=== PATIENT | female | born 1965 | race African-American/Black ===

== ENCOUNTER → 2017-02-27 | Outpatient (RCR) ==
[2014-11-17 10:42] VITALS: BMI 53.8
--- NOTE | 2017-02-17 12:05 | RS.OTEVAL ---
Subjective Date of Note: 02/17/17 Visit #: 1 Date of Evaluation: 02/17/17 Payer Source: Medicaid Date of Onset/Injury/Change in Status: 01/16/17 Surgery Performed?: No Treatment Diagnosis: RUE bursitis, impingement, tendonitis Treatment Side (optional): Right Prior Level of Function.....Patient was independent with: ADL's, Self Care, Work /Vocation, Caregiving, Ambulation/Mobility, Community Integration/Access History of Condition/Mechanism of Injury: Pain in RUE shoulder 2 years ago after carrying the laundry basket and twisting. Pt then hurt her RUE shoulder last month working in her yard. Level of Function: Pt has difficulty with her ADLS. Functional Limitations: Sleep, Self Care, ADL's, Reaching, Pushing, Pulling, Lifting, Carrying, Sitting Current Complaints/Gains: Pain with AROM of RUE when trying to reach, or carry items. Pt is not able to take care of her mom. Medical History Medical History: Hypertension, Diabetes, Arthritis Diagnostic Testing/Imaging:: MRI Hx Home Medications: Metformin, ibuprofin, lesartin, Verapamil, Humila N3S Atavastatin Patient's Goals: To be able to be pain free and use her Right arm. Pain Assessment - Pain Description Pain Description: Burning, Tightness, Aching Pain Location: RUE shoulder Pain Description: aches and numbness in RUE hand Current Pain Intensity: 4 Worst Pain Intensity: 9 Functional Outcome Measures UE Functional Index: 44 - G Codes & Severity Modifier G Codes: na Source of G Code score: na Observation - Observation Inspection: Patient has extremely tight trapezius Posture: Forward Head, Rounded Shoulders Handedness: Right Shoulder ROM: Left WFL's Shoulder Muscle Strength: Left WFL's - Right Shoulder ROM Right Shoulder Flexion: 112 Right Shoulder Extension: 40 Right Shoulder Abduction: 112 Right Shoulder Internal Rotation: 68 Right Shoulder External Rotation: 68 Right Shoulder ROM Limitations: Soft Tissue Tightness, Muscle Weakness, Pain - Left Shoulder Strength Left Shoulder Flexion: 4+ Good + Left Shoulder Extension: 4+ Good + Left Shoulder Abduction: 4+ Good + Left Shoulder Adduction: 4+ Good + Left Shoulder External Rotation: 4+ Good + Left Shoulder Internal Rotation: 4+ Good + - Right Shoulder Strength Right Shoulder Flexion: 3- Fair- Right Shoulder Extension: 3- Fair- Right Shoulder Abduction: 3- Fair- Right Shoulder Adduction: 3- Fair- Right Shoulder External Rotation: 3- Fair- Right Shoulder Internal Rotation: 3- Fair- - Special Tests Shoulder Mckeon-Gio Impingement Test: Positive Right Elbow ROM: Bilaterally WFL's Elbow Muscle Strength: Bilaterally WFL's - Left Elbow Strength Left Elbow Extension: 4+ Good + Left Elbow Flexion: 4+ Good + Left Forearm Pronation: 4+ Good + Left Forearm Supination: 4+ Good + - Right Elbow Strength Right Elbow Extension: 4+ Good + Right Elbow Flexion: 4+ Good + Right Forearm Pronation: 4+ Good + Right Forearm Supination: 4+ Good + Wrist ROM: Bilaterally WFL's Wrist Muscle Strength: Bilaterally WFL's Cotton Bag Sewer Strength Left Hand Cotton Bag Sewer Strength: 56 Right Hand Cotton Bag Sewer Strength: 51 Dynamometer Testing Position: 2nd Position Palpation Palpation Findings: Trigger Point Sensation Right Upper Extremity: Impaired Sensation Description: Numbness Modalities - Treatment Modality: Ultrasound Parameters/Method Applied: .4 w/cm2 for 8 min. Treatment Area: RUE shoulder Patient Position: Sitting - Hot Pack/Cryotherapy Treatment: Cryotherapy Interventions - Exercise/Activities Exercise/Activities/Manual Therapy: Manual therapy HOME EXERCISE PROGRAM: ice RUE shoulder - Charges Total Direct Minutes: 60 Total Treatment Time: 30 Procedures billed for this date of service:: Evaluation Low, CP, US, Assessment Assessment: Pain and tenderness of RUE, taut trapezius muscles, tender points in subscapularis muscle. Patient Education: Education of diagnosis, Home Exercise Program, Education of Plan of Care Rehab Potential: Good Problems/Comments: Pt has difficulty using the RUE due to pain for dressing, bathing, lifting, and carrying items. Short Term Goals Goal #1: Pt pain to decrease to 0-2 Goal to be met by: 03/03/17 Goal #2: Pt AROM of RUE to be WFL. Goal to be met by: 03/03/17 Goal #3: Pt strength of RUE to increase to 4/5 Goal to be met by: 03/03/17 Goal #4: Pt to be independent of HEP Goal to be met by: 03/03/17 Foot Drill Operator Goals Goal #1: Pt pain to decrease to 0. Goal to be met by: 03/31/17 Goal #2: Pt RUE AROM shoulder to be WNL Goal to be met by: 03/31/17 Goal #3: Pt strength of RUE to increase to 4+/5 Goal to be met by: 03/31/17 Goal #4: Pt to be independent with HEP. Goal to be met by: 03/31/17 Plan - Treatment to be provided Procedures: Therapeutic Exercises, Therapeutic Activity, Neuromuscular Rehab, Manual Therapy, Patient Education Modalities: Electrical Stimulation, Ultrasound/Phonophoresis, Cryotherapy - Treatment Plan Frequency: 3 X week Duration: 4 weeks ORDER # VISITS AND/OR THROUGH DATE: April 02, 2017 - Treatment Code (1) Tendinitis of right shoulder Comments: Tendonitis of RUE shoulder (2) Impingement syndrome of right shoulder Comments: Impingment of RUE shoulder (3) Muscle weakness of right arm Comments: Muscle weakness of RUE Shoulder
--- NOTE | 2017-02-19 13:20 | RS.OTDNOTE ---
Subjective Date of Note: 02/19/17 Visit #: 2 Date of Evaluation: 02/17/17 Payer Source: Medicaid Date of Onset/Injury/Change in Status: 01/16/17 Surgery Performed?: No Treatment Diagnosis: RUE bursitis, impingement, tendonitis Treatment Side (optional): Right Prior Level of Function.....Patient was independent with: ADL's, Self Care, Work /Vocation, Caregiving, Ambulation/Mobility, Community Integration/Access History of Condition/Mechanism of Injury: Pain in RUE shoulder 2 years ago after carrying the laundry basket and twisting. Pt then hurt her RUE shoulder last month working in her yard. Level of Function: Pt has difficulty with her ADLS. Functional Limitations: Sleep, Self Care, ADL's, Reaching, Pushing, Pulling, Lifting, Carrying, Sitting Current Complaints/Gains: Pt states pain and decreased ROM has been interfering with ADL's including cooking and cleaning. Pain Assessment - Pain Description Pain Description: Burning, Tightness, Aching Pain Location: RUE shoulder Pain Description: aches and numbness in RUE hand Current Pain Intensity: 4 Worst Pain Intensity: 7-8 Modalities - Treatment Modality: Ultrasound Parameters/Method Applied: .04w/cm2 x 12 mins Treatment Area: posterior shoulder Patient Position: Sitting - Hot Pack/Cryotherapy Treatment: Cryotherapy Interventions - Exercise/Activities Exercise/Activities/Manual Therapy: Manual therapy x 20+ mins with pt in sitting position. Supine position shoulder flexion, scaption, abd, IR/ER along with ISO all directions. Pt ed and performed codman's ex and A/AROM with stick/ cane in supine positon for wknd HEP. HOME EXERCISE PROGRAM: ice RUE shoulder - Charges Total Direct Minutes: 45 Total Treatment Time: 55 Procedures billed for this date of service:: CP USMT EX Assessment Patient Education: Education of diagnosis, Body/Joint mechanics, Home Exercise Program, Home Safety, Activity Modification, Education of Plan of Care Patient demonstrates compliance with HEP?: Yes Short Term Goals Goal #1: Pt pain to decrease to 0-2 Goal to be met by: 03/03/17 Progress towards goal: Progressing Goal #2: Pt AROM of RUE to be WFL. Goal to be met by: 03/03/17 Progress towards goal: Progressing Goal #3: Pt strength of RUE to increase to 4/5 Goal to be met by: 03/03/17 Progress towards goal: Progressing Goal #4: Pt to be independent of HEP Goal to be met by: 03/03/17 Progress towards goal: Progressing Energy Conservation Representative Goals Goal #1: Pt pain to decrease to 0. Goal to be met by: 03/31/17 Progress towards goal: Progressing Goal #2: Pt RUE AROM shoulder to be WNL Goal to be met by: 03/31/17 Progress towards goal: Progressing Goal #3: Pt strength of RUE to increase to 4+/5 Goal to be met by: 03/31/17 Progress towards goal: Progressing Goal #4: Pt to be independent with HEP. Goal to be met by: 03/31/17 Progress towards goal: Progressing Plan PLAN OF CARE EXPIRES ON:: 04/02/17 ORDER # VISITS AND/OR THROUGH DATE: April 02, 2017 PLAN: Continue Plan of Care Frequency: 2 X week Duration: 4 weeks
--- NOTE | 2017-02-24 10:20 | RS.OTDNOTE ---
Subjective Date of Note: 02/23/17 Visit #: 3 Date of Evaluation: 02/17/17 Payer Source: Medicaid Date of Onset/Injury/Change in Status: 01/16/17 Surgery Performed?: No Treatment Diagnosis: RUE bursitis, impingement, tendonitis Treatment Side (optional): Right Prior Level of Function.....Patient was independent with: ADL's, Self Care, Work /Vocation, Caregiving, Ambulation/Mobility, Community Integration/Access History of Condition/Mechanism of Injury: Pain in RUE shoulder 2 years ago after carrying the laundry basket and twisting. Pt then hurt her RUE shoulder last month working in her yard. Level of Function: Pt has difficulty with her ADLS. Functional Limitations: Sleep, Self Care, ADL's, Reaching, Pushing, Pulling, Lifting, Carrying, Sitting Current Complaints/Gains: Pt states good compliance with wknd HEP. States pain is down. Pain Assessment - Pain Description Pain Description: Burning, Tightness, Aching Pain Location: RUE shoulder Pain Description: aches and numbness in RUE hand Modalities - Treatment Modality: Ultrasound Parameters/Method Applied: 1.5w/cm2 x 10 mins Treatment Area: shoulder - Hot Pack/Cryotherapy Treatment: Cryotherapy Interventions - Exercise/Activities Exercise/Activities/Manual Therapy: Manual therapy x 20+ mins with pt in sitting position. Supine position shoulder flexion, scaption, abd, IR/ER along with ISO all directions. Pt ed and performed codman's ex and A/AROM with 1# shawanda bar in supine positon along with red t-band IR/ER and shoulder retraction. HOME EXERCISE PROGRAM: ice RUE shoulder - Charges Total Direct Minutes: 45 Total Treatment Time: 65 Procedures billed for this date of service:: CP US EX2 Assessment Patient Education: Education of diagnosis, Body/Joint mechanics, Home Exercise Program, Home Safety, Activity Modification, Education of Plan of Care Patient demonstrates compliance with HEP?: Yes Short Term Goals Goal #1: Pt pain to decrease to 0-2 Goal to be met by: 03/03/17 Progress towards goal: Progressing Goal #2: Pt AROM of RUE to be WFL. Goal to be met by: 03/03/17 Progress towards goal: Progressing Goal #3: Pt strength of RUE to increase to 4/5 Goal to be met by: 03/03/17 Progress towards goal: Partially Met Goal #4: Pt to be independent of HEP Goal to be met by: 03/03/17 Progress towards goal: Progressing Watch Adjuster Goals Goal #1: Pt pain to decrease to 0. Goal to be met by: 03/31/17 Progress towards goal: Progressing Goal #2: Pt RUE AROM shoulder to be WNL Goal to be met by: 03/31/17 Progress towards goal: Progressing Goal #3: Pt strength of RUE to increase to 4+/5 Goal to be met by: 03/31/17 Progress towards goal: Progressing Goal #4: Pt to be independent with HEP. Goal to be met by: 03/31/17 Progress towards goal: Progressing Plan PLAN OF CARE EXPIRES ON:: 04/02/17 ORDER # VISITS AND/OR THROUGH DATE: April 02, 2017 PLAN: Continue Plan of Care Frequency: 2 X week Duration: 4 weeks
--- NOTE | 2017-02-27 14:17 | RS.OTDNOTE ---
Subjective Date of Note: 02/27/17 Visit #: 4 Date of Evaluation: 02/17/17 Payer Source: Medicaid Date of Onset/Injury/Change in Status: 01/16/17 Surgery Performed?: No Treatment Diagnosis: RUE bursitis, impingement, tendonitis Treatment Side (optional): Right Prior Level of Function.....Patient was independent with: ADL's, Self Care, Work /Vocation, Caregiving, Ambulation/Mobility, Community Integration/Access History of Condition/Mechanism of Injury: Pain in RUE shoulder 2 years ago after carrying the laundry basket and twisting. Pt then hurt her RUE shoulder last month working in her yard. Level of Function: Pt has difficulty with her ADLS. Functional Limitations: Sleep, Self Care, ADL's, Reaching, Pushing, Pulling, Lifting, Carrying, Sitting Current Complaints/Gains: Pt states good compliance with HEP. States she felt a pop during UE PROM but states "it feels looser now." States pain remains 5-7 range but is much better than a 10. Pain Assessment - Pain Description Pain Description: Burning, Tightness, Aching Pain Location: RUE shoulder Pain Description: aches and numbness in RUE hand Current Pain Intensity: 5 Worst Pain Intensity: 7 Modalities - Treatment Modality: Ultrasound Parameters/Method Applied: 1.5w/cm2 x 12 mins Treatment Area: shoulder Patient Position: Sitting - Hot Pack/Cryotherapy Treatment: Cryotherapy (CP x 10 mins following therapy) Interventions - Exercise/Activities Exercise/Activities/Manual Therapy: Manual therapy performed with pt in sitting position with P-AROM. Supine position shoulder flexion, scaption, abd, IR/ER along with ISO all directions. Pt ed and performed codman's ex and A/AROM with 1# shawanda bar in supine positon along with red t-band IR/ER and shoulder retraction. 1# hand weight shoulder flexion/abd, and shoulder retraction performed standing FF position. HOME EXERCISE PROGRAM: ice RUE shoulder - Charges Total Direct Minutes: 60 Total Treatment Time: 60 Procedures billed for this date of service:: CP US EX2 Assessment Patient Education: Education of diagnosis, Body/Joint mechanics, Home Exercise Program, Home Safety, Activity Modification, Education of Plan of Care Patient demonstrates compliance with HEP?: Yes Short Term Goals Goal #1: Pt pain to decrease to 0-2 Goal to be met by: 03/03/17 Progress towards goal: Progressing Goal #2: Pt AROM of RUE to be WFL. Goal to be met by: 03/03/17 Progress towards goal: Partially Met Goal #3: Pt strength of RUE to increase to 4/5 Goal to be met by: 03/03/17 Progress towards goal: Met Goal #4: Pt to be independent of HEP Goal to be met by: 03/03/17 Progress towards goal: Partially Met Shelter Goals Goal #1: Pt pain to decrease to 0. Goal to be met by: 03/31/17 Progress towards goal: Progressing Goal #2: Pt RUE AROM shoulder to be WNL Goal to be met by: 03/31/17 Progress towards goal: Progressing Goal #3: Pt strength of RUE to increase to 4+/5 Goal to be met by: 03/31/17 Progress towards goal: Progressing Goal #4: Pt to be independent with HEP. Goal to be met by: 03/31/17 Progress towards goal: Progressing Plan PLAN OF CARE EXPIRES ON:: 04/02/17 ORDER # VISITS AND/OR THROUGH DATE: April 02, 2017 PLAN: Continue Plan of Care Frequency: 2 X week Duration: 4 weeks
== END ==
PROVIDERS: ATTEND Orthopaedic Surgery
DX: M75.81 Other shoulder lesions, right shoulder (principal); M75.41 Impingement syndrome of right shoulder; M75.51 Bursitis of right shoulder

== ENCOUNTER 2017-03-09 13:00 | Outpatient (RCR) ==
[2014-11-17 10:42] VITALS: BMI 53.8
--- NOTE | 2017-03-03 13:55 | RS.OTDNOTE ---
Subjective Date of Note: 03/03/17 Visit #: 5 Date of Evaluation: 02/17/17 Payer Source: Medicaid Date of Onset/Injury/Change in Status: 01/16/17 Surgery Performed?: No Treatment Diagnosis: RUE bursitis, impingement, tendonitis Treatment Side (optional): Right Prior Level of Function.....Patient was independent with: ADL's, Self Care, Work /Vocation, Caregiving, Ambulation/Mobility, Community Integration/Access History of Condition/Mechanism of Injury: Pain in RUE shoulder 2 years ago after carrying the laundry basket and twisting. Pt then hurt her RUE shoulder last month working in her yard. Level of Function: Pt has difficulty with her ADLS. Functional Limitations: Sleep, Self Care, ADL's, Reaching, Pushing, Pulling, Lifting, Carrying, Sitting Current Complaints/Gains: pt pleased with ROM increase. States c/o "goes out" UE with popping at times. States she has been utilizing tennis balls for trigger point therapy and states good compliance with HEP/stretching protocol Pain Assessment - Pain Description Pain Location: RUE shoulder Pain Description: aches and numbness in RUE hand Modalities - Treatment Modality: Ultrasound Parameters/Method Applied: 1.5w/cm2 x 12 mins Treatment Area: R shoulder Patient Position: Sitting - Hot Pack/Cryotherapy Treatment: Cryotherapy Interventions - Exercise/Activities Exercise/Activities/Manual Therapy: Manual therapy performed with pt in sitting position with P-AROM. Supine position shoulder flexion, scaption, abd, IR/ER along with ISO all directions. Pt ed and performed codman's ex and A/AROM with 1# shawanda bar in supine positon along with red t-band IR/ER and shoulder retraction. 2# hand weight shoulder flexion/abd, and shoulder retraction performed standing FF position. Ball/wall shelf and B UE miah system also performed. HOME EXERCISE PROGRAM: ice RUE shoulder - Objective Findings Objective Findings:: ROM WFL - Charges Total Direct Minutes: 46 Total Treatment Time: 58 Procedures billed for this date of service:: CP US MT EX Assessment Patient Education: Education of diagnosis, Body/Joint mechanics, Home Exercise Program, Home Safety, Activity Modification, Education of Plan of Care Patient demonstrates compliance with HEP?: Yes Short Term Goals Goal #1: Pt pain to decrease to 0-2 Goal to be met by: 03/03/17 Progress towards goal: Partially Met Goal #2: Pt AROM of RUE to be WFL. Goal to be met by: 03/03/17 Progress towards goal: Met Goal #3: Pt strength of RUE to increase to 4/5 Goal to be met by: 03/03/17 Progress towards goal: Met Goal #4: Pt to be independent of HEP Goal to be met by: 03/03/17 Progress towards goal: Partially Met Manager Heart Goals Goal #1: Pt pain to decrease to 0. Goal to be met by: 03/31/17 Progress towards goal: Progressing Goal #2: Pt RUE AROM shoulder to be WNL Goal to be met by: 03/31/17 Progress towards goal: Progressing Goal #3: Pt strength of RUE to increase to 4+/5 Goal to be met by: 03/31/17 Progress towards goal: Progressing Goal #4: Pt to be independent with HEP. Goal to be met by: 03/31/17 Progress towards goal: Progressing Plan PLAN OF CARE EXPIRES ON:: 04/02/17 ORDER # VISITS AND/OR THROUGH DATE: April 02, 2017 PLAN: Continue Plan of Care Frequency: 2 X week Duration: 3 weeks
--- NOTE | 2017-03-05 15:19 | RS.OTDNOTE ---
Subjective Date of Note: 03/05/17 Visit #: 6 Date of Evaluation: 02/17/17 Payer Source: Medicaid Date of Onset/Injury/Change in Status: 01/16/17 Surgery Performed?: No Treatment Diagnosis: RUE bursitis, impingement, tendonitis Treatment Side (optional): Right Prior Level of Function.....Patient was independent with: ADL's, Self Care, Work /Vocation, Caregiving, Ambulation/Mobility, Community Integration/Access History of Condition/Mechanism of Injury: Pain in RUE shoulder 2 years ago after carrying the laundry basket and twisting. Pt then hurt her RUE shoulder last month working in her yard. Level of Function: Pt has difficulty with her ADLS. Functional Limitations: Sleep, Self Care, ADL's, Reaching, Pushing, Pulling, Lifting, Carrying, Sitting Current Complaints/Gains: Pt states she is sleeping better and able to position on her (R) UE now. States pain remains low and motion is back to normal. Pain Assessment - Pain Description Pain Location: RUE shoulder Pain Description: aches and numbness in RUE hand Current Pain Intensity: 3 Worst Pain Intensity: 5 Modalities - Treatment Modality: Ultrasound Parameters/Method Applied: 1.5w/cm2 x 14 mins Treatment Area: shoulder - Hot Pack/Cryotherapy Treatment: Cryotherapy Interventions - Exercise/Activities Exercise/Activities/Manual Therapy: Manual therapy performed with pt in sitting position with P-AROM. Supine position shoulder flexion, scaption, abd, IR/ER along with ISO all directions. Pt ed and performed codman's ex and A/AROM with 3# shawanda bar in supine positon along with red progressed to green t-band IR/ER and shoulder retraction 15/2. 2# hand weight shoulder flexion/abd, and shoulder retraction performed standing FF position. Ball/wall shelf and B UE miah system also performed. HOME EXERCISE PROGRAM: ice RUE shoulder - Objective Findings Objective Findings:: ROM WFL - Charges Total Direct Minutes: 45 Total Treatment Time: 55 Procedures billed for this date of service:: CP US Ex2 Assessment Patient Education: Education of diagnosis, Body/Joint mechanics, Home Exercise Program, Home Safety, Activity Modification, Education of Plan of Care Patient demonstrates compliance with HEP?: Yes Short Term Goals Goal #1: Pt pain to decrease to 0-2 Goal to be met by: 03/03/17 Progress towards goal: Partially Met Goal #2: Pt AROM of RUE to be WFL. Goal to be met by: 03/03/17 Progress towards goal: Met Goal #3: Pt strength of RUE to increase to 4/5 Goal to be met by: 03/03/17 Progress towards goal: Met Goal #4: Pt to be independent of HEP Goal to be met by: 03/03/17 Progress towards goal: Partially Met Budget Accountant Goals Goal #1: Pt pain to decrease to 0. Goal to be met by: 03/31/17 Progress towards goal: Progressing Goal #2: Pt RUE AROM shoulder to be WNL Goal to be met by: 03/31/17 Progress towards goal: Progressing Goal #3: Pt strength of RUE to increase to 4+/5 Goal to be met by: 03/31/17 Progress towards goal: Progressing Goal #4: Pt to be independent with HEP. Goal to be met by: 03/31/17 Progress towards goal: Progressing Plan PLAN OF CARE EXPIRES ON:: 04/02/17 ORDER # VISITS AND/OR THROUGH DATE: April 02, 2017 PLAN: Continue Plan of Care Frequency: 2 X week Duration: 1 week
--- NOTE | 2017-03-09 15:32 | RS.OTDNOTE ---
Subjective Date of Note: 03/09/17 Visit #: 7 Date of Evaluation: 02/17/17 Payer Source: Medicaid Date of Onset/Injury/Change in Status: 01/16/17 Surgery Performed?: No Treatment Diagnosis: RUE bursitis, impingement, tendonitis Treatment Side (optional): Right Prior Level of Function.....Patient was independent with: ADL's, Self Care, Work /Vocation, Caregiving, Ambulation/Mobility, Community Integration/Access History of Condition/Mechanism of Injury: Pain in RUE shoulder 2 years ago after carrying the laundry basket and twisting. Pt then hurt her RUE shoulder last month working in her yard. Level of Function: Pt has difficulty with her ADLS. Functional Limitations: Sleep, Self Care, ADL's, Reaching, Pushing, Pulling, Lifting, Carrying, Sitting Current Complaints/Gains: Pt states she has learned new ways of doing things and arm is feeling better. States she is agreeable to DC at end of this wk and states good understanding of HEP. Pain Assessment - Pain Description Pain Description: Dull Pain Location: RUE shoulder Modalities - Treatment Modality: Ultrasound Parameters/Method Applied: 1.5w/cm2 x 10 mins Patient Position: Sitting - Hot Pack/Cryotherapy Treatment: Cryotherapy (CP x 10 mins) Interventions - Exercise/Activities Exercise/Activities/Manual Therapy: Manual therapy performed with pt in sitting position with P-AROM. Sitting position shoulder flexion, scaption, abd, IR/ER along with ISO all directions. Pt ed and performed codman's ex and A/AROM with 3# shawanda bar in supine positon along with red progressed to green t-band IR/ER and shoulder retraction 15/2. 3-4# hand weight shoulder flexion/abd, and shoulder retraction performed standing FF position. Ball/wall shelf and B UE miah system also performed. HOME EXERCISE PROGRAM: ice RUE shoulder - Objective Findings Objective Findings:: ROM WFL - Charges Total Direct Minutes: 50 Total Treatment Time: 60 Procedures billed for this date of service:: CP US EX2 Assessment Patient Education: Education of diagnosis, Body/Joint mechanics, Home Exercise Program, Home Safety, Activity Modification, Education of Plan of Care Patient demonstrates compliance with HEP?: Yes Short Term Goals Goal #1: Pt pain to decrease to 0-2 Goal to be met by: 03/03/17 Progress towards goal: Met Goal #2: Pt AROM of RUE to be WFL. Goal to be met by: 03/03/17 Progress towards goal: Met Goal #3: Pt strength of RUE to increase to 4/5 Goal to be met by: 03/03/17 Progress towards goal: Met Goal #4: Pt to be independent of HEP Goal to be met by: 03/03/17 Progress towards goal: Met Employee Adviser Goals Goal #1: Pt pain to decrease to 0. Goal to be met by: 03/31/17 Progress towards goal: Partially Met Goal #2: Pt RUE AROM shoulder to be WNL Goal to be met by: 03/31/17 Progress towards goal: Partially Met Goal #3: Pt strength of RUE to increase to 4+/5 Goal to be met by: 03/31/17 Progress towards goal: Partially Met Goal #4: Pt to be independent with HEP. Goal to be met by: 03/31/17 Progress towards goal: Met Plan PLAN OF CARE EXPIRES ON:: 04/02/17 ORDER # VISITS AND/OR THROUGH DATE: April 02, 2017 PLAN: Plan for Discharge Frequency: 1 X week Duration: 1 week
--- NOTE | 2017-03-11 13:28 | RS.OTQKDC ---
OT Discharge Date of Discharge: 03/11/17 Number of Visits: 7 Reason for Discharge: Pt states arm feels better and called to state that she would like to discharge at this time. States she will continue with HEP and applying biofreeze.
== END 2017-03-29 ==
PROVIDERS: ATTEND Orthopaedic Surgery
DX: M75.81 Other shoulder lesions, right shoulder (principal); M75.41 Impingement syndrome of right shoulder; M75.51 Bursitis of right shoulder

== ENCOUNTER 2017-04-30 15:00 | Outpatient (CLI) ==
[2014-11-17 10:42] VITALS: BMI 53.8
[2017-04-30 15:15] LABS: BASOPHILS # (AUTO) 0.1 K/uL (0-0.2); BASOPHILS % (AUTO) 0.7 % (0.0-3.0); EOSINOPHILS # (AUTO) 0.3 K/ul (0.0-0.7); HEMOGLOBIN 13.2 g/dl (12.0-16.0); IMMATURE GRANULOCYTE % (AUTO) 0.1 % (0.0-5.0); LYMPHOCYTES # (AUTO) 2.5 K/uL (0.60-3.4); LYMPHOCYTES % (AUTO) 32.9 (10.0-50.0); MEAN CORPUSCULAR HGB CONC 32.2 (31.8-35.4); MONOCYTES # (AUTO) 0.5 K/uL (0.4-2.0); MONOCYTES % (AUTO) 6.1 (0-10); NEUTROPHILS # (AUTO) 4.3 K/ul (2.0-6.9); NEUTROPHILS % (AUTO) 56.2; PLATELET COUNT 147 10^3/uL (140-440); RED BLOOD COUNT 4.71 10^6/ul (4.20-5.40); WHITE BLOOD COUNT 7.56 K/ul (4.6-10.2)
[2017-04-30 15:51] LABS: POTASSIUM 3.6 mmol/L (3.5-5.10)
[2017-04-30 15:52] LABS: ALBUMIN 3.8 g/dL (3.4-5.0); ALBUMIN/GLOBULIN RATIO 1.15; ANION GAP 14.6; BILIRUBIN,TOTAL 0.39 mg/dL (0.00-1.20); BUN/CREATININE RATIO 21.59; CHOL/HDL RATIO 3.8 (4.5-5.5); CREATININE 0.88 mg/dL (0.60-1.30); TOTAL PROTEIN 7.1 g/dL (6.4-8.2)
== END 2017-04-30 15:01 | disposition home or self-care (01) ==
LOC: LAB 15:00
PROVIDERS: ATTEND Emergency Medicine
DX: E11.9 Type 2 diabetes mellitus without complications (principal); I10 Essential (primary) hypertension; E66.9 Obesity, unspecified; E78.5 Hyperlipidemia, unspecified
CPT/HCPCS: 36415; 80053; 80061; 83036; 84443; 85025

== ENCOUNTER 2017-08-04 16:17 | Outpatient (CLI) ==
[2014-11-17 10:42] VITALS: BMI 53.8
[2017-08-04 16:30] LABS: BASOPHILS % (AUTO) 0.5 % (0.0-3.0); EOSINOPHILS # (AUTO) 0.2 K/ul (0.0-0.7); EOSINOPHILS % (AUTO) 3.8 % (0.0-7.0); HEMATOCRIT 39.3 % (37.0-47.0); HEMOGLOBIN 12.6 g/dl (12.0-16.0); IMMATURE GRANULOCYTE % (AUTO) 0.3 % (0.0-5.0); LYMPHOCYTES # (AUTO) 2.3 K/uL (0.60-3.4); LYMPHOCYTES % (AUTO) 38.9 (10.0-50.0); MEAN CORPUSCULAR HEMOGLOBIN 28.1 pg (27.0-31.0); MEAN CORPUSCULAR HGB CONC 32.1 (31.8-35.4); MEAN CORPUSCULAR VOLUME 87.5 fl (81.0-99.0); MONOCYTES # (AUTO) 0.4 K/uL (0.4-2.0); MONOCYTES % (AUTO) 6.4 (0-10); NEUTROPHILS # (AUTO) 2.9 K/ul (2.0-6.9); NEUTROPHILS % (AUTO) 50.1; PLATELET COUNT 134 10^3/uL (140-440); RED BLOOD COUNT 4.49 10^6/ul (4.20-5.40); WHITE BLOOD COUNT 5.78 K/ul (4.6-10.2)
[2017-08-04 17:00] LABS: ALBUMIN 3.7 g/dL (3.4-5.0); ALBUMIN/GLOBULIN RATIO 1.12; ANION GAP 12.7; BILIRUBIN,TOTAL 0.53 mg/dL (0.00-1.20); BUN/CREATININE RATIO 18.75; CALCIUM 9.8 mg/dL (8.2-10.2); CHOL/HDL RATIO 3.8 (4.5-5.5); CREATININE 0.8 mg/dL (0.60-1.30); POTASSIUM 3.7 mmol/L (3.5-5.10)
== END 2017-08-04 16:18 | disposition home or self-care (01) ==
LOC: LAB 16:17
PROVIDERS: ATTEND Emergency Medicine
DX: E11.9 Type 2 diabetes mellitus without complications (principal); E78.5 Hyperlipidemia, unspecified; I10 Essential (primary) hypertension
CPT/HCPCS: 36415; 80053; 80061; 83036; 84443; 85025

== ENCOUNTER 2017-10-26 12:30 | Outpatient (CLI) ==
[2014-11-17 10:42] VITALS: BMI 53.8
[2017-10-26 12:58] LABS: ALBUMIN 3.5 g/dL (3.4-5.0); ALBUMIN/GLOBULIN RATIO 1.03; BILIRUBIN,TOTAL 0.29 mg/dL (0.00-1.20); BUN/CREATININE RATIO 17.04; CALCIUM 9.1 mg/dL (8.2-10.2); CREATININE 0.88 mg/dL (0.60-1.30); TOTAL PROTEIN 6.9 g/dL (6.4-8.2)
== END 2017-10-26 12:31 | disposition home or self-care (01) ==
LOC: LAB 12:30
PROVIDERS: ATTEND Emergency Medicine
DX: E11.9 Type 2 diabetes mellitus without complications (principal); I10 Essential (primary) hypertension
CPT/HCPCS: 36415; 80053

== ENCOUNTER 2017-12-25 07:06 | Outpatient (CLI) ==
[2014-11-17 10:42] VITALS: BMI 53.8
== END 2017-12-25 07:07 | disposition home or self-care (01) ==
LOC: LAB 07:06
PROVIDERS: ATTEND Emergency Medicine
DX: E11.9 Type 2 diabetes mellitus without complications (principal); E78.5 Hyperlipidemia, unspecified; I10 Essential (primary) hypertension
CPT/HCPCS: 36415; 80053; 80061; 83036; 84443; 85025

== ENCOUNTER 2018-01-01 16:10 | Outpatient (CLI) ==
[2014-11-17 10:42] VITALS: BMI 53.8
== END 2018-01-01 16:11 | disposition home or self-care (01) ==
LOC: LAB 16:10
PROVIDERS: ATTEND Emergency Medicine
DX: J06.9 Acute upper respiratory infection, unspecified (principal)
CPT/HCPCS: 87502; 87651

== ENCOUNTER 2018-03-25 11:34 | Outpatient (CLI) ==
[2014-11-17 10:42] VITALS: BMI 53.8
== END 2018-03-25 11:35 | disposition home or self-care (01) ==
LOC: RHC-LAB 11:34
PROVIDERS: ATTEND Emergency Medicine
DX: E11.9 Type 2 diabetes mellitus without complications (principal); E78.5 Hyperlipidemia, unspecified; I10 Essential (primary) hypertension
CPT/HCPCS: 36415; 80053; 80061; 83036; 84443; 85025

== ENCOUNTER 2018-07-13 10:42 | Emergency (ER) ==
[2018-07-13 10:51] VITALS: BP 147/90; TEMP 98.2; BMI 46.9
[2018-07-13] MEDS ORDERED: TORADOL PO STA (11:10)
--- NOTE | 2018-07-13 11:19 | ED.PDOC ---
General ED Provider: Dr. PRASHANTH CASEY Chief Complaint: Foot Pain/Injury Stated Complaint: Lt foot pain. States was Walking with her father on Thursday. Was wearing flats and first noticed pain in her left foot that evening. Stated she stayed off of it on Thursday but on Thursday she resumed her normal activity and notince recurrent pain after standing and walking. Describes pain as being sharp and stabbing sensation. Pain to Medial/ Anterior area of left foot, slight swelling Time Seen by Physician: 10:55 Mode of Arrival: Wheelchair Information Source: Patient Exam Limitations: No limitations [facility] and Triage Documentation Reviewed and Agree: Yes Does patient meet sepsis criteria?: No System Inflammatory Response Syndrome: Not Applicable Sepsis Protocol: For patient's 13 years and over: Temp is 96.8 and below OR 101 and greater Pulse >90 BPM Resp >20/minute Acutely Altered Mental Status Are patient's symptoms suggestive of a new infection, such as: -Pneumonia -Skin, Soft Tissue -Endocarditis -UTI -Bone, Joint Infection -Implantable Device -Acute Abdominal Infection -Wound Infection -Meningitis -Blood Stream Catheter Infection -Unknown Musculoskeletal Complaint Exam - Ankle/Foot Complaint/Exam Location of Injury: Reports: Left, Foot Mechanism of Injury: Reports: No known trauma Onset/Duration: Symptoms Are: Reports: Still present Onset of Pain: Reports: Hours Initial Severity: Mild Current Severity: Moderate Location: Reports: Discrete Character: Reports: Sharp, Aching Alleviating: Reports: Rest Aggravating: Reports: Movement (palpation to the Lt 3rd MTP joint) Associated Signs and Symptoms: Reports: Swelling Gout Risk Factors: Reports: None Related Surgical History: Reports: None Lower Extremity Findings: Present: Swelling (chronic) Achilles Tendon Abnormality: No Tenderness: Present: Midfoot Limited Range of Motion: Absent: Inversion, Eversion, Dorsiflexion, Plantarflexion Differential Diagnosis: Closed Fracture (strain) Review of Systems - Review Of Systems Constitutional: Reports: No symptoms Eyes: Reports: No symptoms Ears, Nose, Mouth, Throat: Reports: No symptoms Respiratory: Reports: No symptoms Cardiac: Reports: No symptoms GI: Reports: No symptoms : Reports: No symptoms Musculoskeletal: Reports: No symptoms, Joint pain Skin: Reports: No symptoms Neurological: Reports: No symptoms Endocrine: Reports: No symptoms Hematologic/Lymphatic: Reports: No symptoms All Other Systems: Reviewed and Negative Past Medical History - Past Medical History Previously Healthy: Yes Endocrine: Reports: None Cardiovascular: Reports: None Respiratory: Reports: None Hematological: Reports: None Gastrointestinal: Reports: None Genitourinary: Reports: None Neuro/Psych: Reports: None Musculoskeletal: Reports: None Cancer: Reports: None Last Menstrual Period: none - Surgical History General Surgical History: Reports: None - Family History Family History: Reports: None - Social History Smoking Status: Never smoker Hx Substance Use: No Alcohol Screening: None Physical Exam - Physical Exam Appearance: Well-appearing, No pain distress, Well-nourished Eyes: JT, EOMI, Conjunctiva clear ENT: Ears normal, Nose normal, Oropharynx normal Respiratory: Airway patent, Breath sounds clear, Breath sounds equal, Respirations nonlabored Cardiovascular: RRR, Pulses normal, No rub, No murmur GI/: Soft, Nontender, No masses, Bowel sounds normal, No Organomegaly Musculoskeletal: Normal strength, ROM intact (painful lt foot), No edema, No calf tenderness Skin: Warm, Dry, Normal color Neurological: Sensation intact, Motor intact, Reflexes intact, Cranial nerves intact, Alert, Oriented Psychiatric: Affect appropriate, Mood appropriate Interpretation - Radiology Interpretation Radiology Interpretation By: ED Physician (11:35 AM) Radiology Results: No acute changes Critical Care Note - Critical Care Note Total Time (mins): 0 Course - Course Orders, Labs, Meds: Orders Category Date Time Status Ketorolac Tromethamine [Toradol] MEDS 07/13/18 11:10 Stat 10 mg PO ONCE STA FOOT, LEFT 3 VIEWS Stat RADS 07/13/18 11:08 Ordered Medications Discontinued Medications Generic Name Dose Route Start Last Admin Trade Name Niravq PRN Reason Stop Dose Admin Ketorolac Tromethamine 10 mg 07/13/18 11:10 07/13/18 11:23 Toradol PO 07/13/18 11:11 10 mg ONCE STA Administration Vital Signs: Temp Pulse Resp BP Pulse Ox 07/13/18 10:43 98.2 F 119 H 20 147/90 H 95 Departure - Departure Time of Disposition: 11:40 Disposition: HOME SELF-CARE Discharge Problem: Metatarsalgia, left foot, Strain of foot, left Instructions: Ankle Strain (ED), Metatarsalgia (DC) Condition: Good Pt referred to PMD for follow-up: Yes IPMP verified?: No Additional Instructions: Ice/ ZAK Wrap/ELevate/avoid prolonged periods of standing or walking Take analgesics for pain relief as directed See PCP in 1 week Advance activity as tolerated Possible use a cane if available of support Prescriptions: Ketorolac Tromethamine [Toradol] 10 mg PO Q6H PRN #20 tablet PRN Reason: foot pain Allergies/Adverse Reactions: Allergies No Known Allergies Allergy (Verified 07/13/18 10:47) Home Medications: Ambulatory Orders NPH, Human Insulin Isophane [Humulin N] 100 unit SQ BID 08/09/14 Ketorolac Tromethamine [Toradol] 10 mg PO Q6H PRN #20 tablet 07/13/18 Disposition Discussed With: Patient
--- NOTE | 2018-07-13 11:38 | DI ---
EXAM: Three views of the left foot. History: Pain of the left third metatarsal. Findings: No acute fracture or dislocation. Mild polyarticular joint space narrowing. Tiny plantar spur. No radiopaque foreign bodies. Diffuse subcutaneous edema. Impression: No acute osseous abnormality
== END 2018-07-13 11:55 | disposition home or self-care (01) ==
LOC: ED 10:42
DX: S96.912A Strain of unspecified muscle and tendon at ankle and foot level, left foot, initial encounter (principal); M77.42 Metatarsalgia, left foot; X50.1XXA Overexertion from prolonged static or awkward postures, initial encounter
CPT/HCPCS: 99282

== ENCOUNTER 2018-07-21 15:27 | Outpatient (CLI) | END 2018-07-21 15:28 | disposition home or self-care (01) | LOC: RHC-LAB 15:27 | PROVIDERS: ATTEND Emergency Medicine | DX: E11.9 Type 2 diabetes mellitus without complications (principal); I10 Essential (primary) hypertension; E78.5 Hyperlipidemia, unspecified; E66.9 Obesity, unspecified | CPT/HCPCS: 36415; 80053; 80061; 83036; 84443; 85025 ==

== ENCOUNTER 2018-10-07 10:09 | Outpatient (CLI) ==
--- NOTE | 2018-10-07 11:16 | US ---
EXAM: Transvaginal pelvic ultrasound. History: Uterine fibroids. Comparison: None available. Technique: Multiple sonographic images through the pelvis were obtained. Color duplex Doppler was u sed to interrogate vascular flow. Findings: The uterus measures 8.4 cm x 5.3 cm x 5.9 cm. 0.4 cm cervical Nabothian cyst. 3.2 cm heterogeneous m yometrial uterine mass. Endometrium was not well visualized due to the shadowing from the fibroid. No fluid in the cul-de-sac. Neither ovary was visualized probably due to obscuration by bowel gas. No adnexal masses. Impression: Uterine fibroid
== END 2018-10-07 10:10 | disposition home or self-care (01) ==
LOC: RAD 10:09
PROVIDERS: ATTEND Family Medicine
DX: D21.9 Benign neoplasm of connective and other soft tissue, unspecified (principal); D25.9 Leiomyoma of uterus, unspecified

== ENCOUNTER 2018-10-13 11:18 | Outpatient (CLI) | END 2018-10-13 11:19 | disposition home or self-care (01) | LOC: FCC-LAB 11:18 → LAB 11:19 | PROVIDERS: ATTEND Family Medicine | DX: R79.89 Other specified abnormal findings of blood chemistry (principal); E11.9 Type 2 diabetes mellitus without complications; D69.6 Thrombocytopenia, unspecified; G63 Polyneuropathy in diseases classified elsewhere | CPT/HCPCS: 36415; 82043; 82306; 82607; 85025 ==